=== PATIENT | female | born 1995 | race Caucasian/White ===

== ENCOUNTER 2018-02-24 16:44 | Emergency (ER) | payer SELFPAY | END 2018-02-24 18:32 | disposition left against medical advice (07) | LOC: ER 18:31 | DX: R21 Rash and other nonspecific skin eruption (principal); Z53.21 Procedure and treatment not carried out due to patient leaving prior to being seen by health care provider ==

== ENCOUNTER 2018-05-13 21:10 | Emergency (ER) | payer MEDICAID ==
[~2018-05-13] VITALS: Ht 160 cm; Wt 65.0 kg
[2018-05-13 21:43] VITALS: BP 119/74
[2018-05-13 23:38] LABS: CLARITY URINE TURBID (CLEAR); COLOR URINE YELLOW (YELLOW); KETONES URINE NEGATIVE (NEGATIVE); LEUKOCYTE ESTERASE URINE NEGATIVE (NEGATIVE); NITRITE URINE NEGATIVE (NEGATIVE); OCCULT BLOOD URINE NEGATIVE (NEGATIVE); PH URINE 7.5 (4.5-8.0); PROTEIN URINE NEGATIVE (NEGATIVE)
== END 2018-05-14 01:10 | disposition left against medical advice (07) ==
LOC: ER 21:10
DX: Z53.21 Procedure and treatment not carried out due to patient leaving prior to being seen by health care provider (principal)
CPT/HCPCS: 81003; 81025

== ENCOUNTER 2019-06-08 00:59 | Emergency (ER) | payer MEDICAID | END 2019-06-08 02:52 | disposition left against medical advice (07) | LOC: ER 00:59 | DX: Z53.21 Procedure and treatment not carried out due to patient leaving prior to being seen by health care provider (principal) ==

== ENCOUNTER 2024-01-27 09:39 | Emergency (ER) | payer MEDICAID ==
[~2024-01-27] VITALS: Ht 160 cm; Wt 66.7 kg
[2024-01-27 09:46] VITALS: O2SAT 99
[2024-01-27] MEDS ORDERED: GUAI-450 MT (10:32)
[2024-01-27] MEDS ORDERED: IBUP-2029 MT (10:32)
[2024-01-27] MEDS: IBUPROFEN 600MG TABLET PO ONE (10:57)
[2024-01-27] MEDS: DEXAMETHASONE 10 MG/ML VIAL PO ONE (10:57)
[2024-01-27 11:02] VITALS: BP 118/66; PULSE 78; RESP 16; TEMP 98.4
== END 2024-01-27 11:11 | disposition home or self-care (01) ==
LOC: ER 09:39
DX: J06.9 Acute upper respiratory infection, unspecified (principal)
CPT/HCPCS: 99283; 71045; 81025; J1100

== ENCOUNTER 2024-06-10 02:04 | Emergency (ER) | payer MEDICAID, OTHER ==
[~2024-06-10] VITALS: Ht 160 cm; Wt 66.0 kg
[~2024-06-10 02:04] MED LIST: GUAI-450 MT; IBUP-2029 MT
[2024-06-10 02:17] VITALS: BP 115/66; PULSE 67; RESP 16; TEMP 98.6; O2SAT 99
== END 2024-06-10 08:11 | disposition left against medical advice (07) ==
LOC: ER 02:04
DX: R11.2 Nausea with vomiting, unspecified (principal); Z53.21 Procedure and treatment not carried out due to patient leaving prior to being seen by health care provider

== ENCOUNTER 2025-04-13 06:36 | Emergency (ER) | payer SELFPAY ==
[~2025-04-13] VITALS: Ht 160 cm; Wt 57.0 kg
[2025-04-13 06:48] VITALS: O2SAT 99
[2025-04-13] MEDS ORDERED: CETI-89 MT (07:42)
[2025-04-13] MEDS ORDERED: DEXAMETHASONE 1MG TABLET PO ONE (07:45)
[2025-04-13] MEDS: DEXAMETHASONE 4MG TABLET PO NR (08:02)
[2025-04-13] MEDS: FAMOTIDINE 20MG TABLET PO ONE (08:04)
[2025-04-13 08:07] VITALS: BP 92/57; PULSE 70; RESP 18; TEMP 36.6; O2SAT 97
[2025-04-13] MEDS: LORATADINE 10MG TABLET PO SCH (08:12)
== END 2025-04-13 08:18 | disposition home or self-care (01) ==
LOC: ER 06:49
DX: R21 Rash and other nonspecific skin eruption (principal); Z79.899 Other long term (current) drug therapy
CPT/HCPCS: 99284; J8540